=== PATIENT | male | born 1960 | race Caucasian/White ===

== ENCOUNTER 2016-12-19 08:16 | Emergency (ER) | payer OTHER ==
[~2016-12-19] VITALS: Ht 190.5 cm; Wt 113.4 kg
[~2016-12-19 08:16] MED LIST: ACHD5005 PO; CPR500T PO; HYDR1TAB8 OP; IBP800T PO; KETO-22 PO; TRM50T PO
[2016-12-19] MEDS ORDERED: methylPREDNISolone 125 MG (Solu-MEDROL) VIAL ONE (09:08)
[2016-12-19] MEDS ORDERED: diphenhydrAMINE 50 MG/ML INJ (BENADRYL) ONE (09:09)
--- NOTE | 2016-12-19 09:18 | ED Integumentary General ---
General Stated Complaint: ITCHY/SWELLING BOTH ARMS AND FACE Source: patient, family () Exam Limitations: no limitations History of Present Illness Time seen by provider: 09:07 Initial Comments Patient presents to ER with a bright red rash and itching over his forearms and trunk head and neck sparing the mucosa. He has no difficulty swallowing his secretions or difficulty breathing, cough, history of asthma or COPD. He does smoke about a pack a day denies drinking or illicit drug use. No new exposures, trips to the [place], insect bites, tick bites. His remarks that on or Tuesday she switched over from Tide detergent to tide pods for high efficiency machines. He has taken Benadryl a few times for the itching and it marginally helped. No creams or emollients. No history of this ever happening before. No one else around him has similar situation. No travel outside the [facility] recently. No recent infections. He is on minocycline for years to treat a chronic bullous disease by dermatology and Debra. His PCP is Dr. OWEN. Allergies and Home Medications Allergies Coded Allergies: Naproxen (Unverified Allergy, Mild, 01/18/10) No Known Drug Allergies (Unverified , 12/20/09) Home Medications Hydrocodone Bit/Acetaminophen 1 Each Tablet, 1-2 EACH PO Q6H PRN, #14 Ref 0 Prescribed by: TESSY RAY on 12/29/11 1639 Hydroxyzine HCl 25 Mg Tablet, 25 MG PO Q6H PRN for ITCHING, #30 Ref 1 Prescribed by: YAMILETH FELTON on 12/19/16 1004 Ibuprofen 800 Mg Tab, 800 MG PO Q8HR PRN, #30 Ref 0 Prescribed by: TESSY RAY on 12/29/11 1639 Prednisone 20 Mg Tab, 40 MG PO BID for 5 Days, #20 Ref 0 Prescribed by: YAMILETH FELTON on 12/19/16 1004 Constitutional: No chills, No diaphoresis, No fever EENTM: No blurred vision, No double vision, No ear pain, No eye pain, No hoarseness, No mouth pain, No mouth swelling, No nose congestion, No nose pain, No throat pain, No throat swelling, No vision loss Respiratory: No cough, No short of breath, No stridor, No wheezing Cardiovascular: No chest pain, No syncope, No vascular heart diseas Gastrointestinal: No abdominal pain, No constipation, No diarrhea Genitourinary: No dysuria, No incontinence Musculoskeletal: No back pain, No joint pain Skin: see HPI, No change in hair/nails, pruritus, rash Psychiatric/Neurological: Denies Anxiety, Denies Depressed Past Utqmcxg-[id number]-[id number] Hx Patient Social History Alcohol Use: Occasionally Uses Recreational Drug Use: No Type Used: Cigarettes (1 ppd) Recent Foreign Travel: No Contact w/Someone Who Travel: No Physical Exam Vital Signs Vital Sign - Last 12Hours 12/19/16 09:00 Temp 98.2 Pulse 69 Resp 18 B/P (MAP) 142/77 Pulse Ox 95 Capillary Refill : General Appearance: WD/WN, no apparent distress HEENT: PERRL/EOMI, normal ENT inspection, TMs normal, pharynx normal Neck: non-tender, full range of motion, supple, normal inspection Cardiovascular: normal peripheral pulses, regular rate, rhythm, no edema, no JVD, no murmur Respiratory: chest non-tender, lungs clear, normal breath sounds, no respiratory distress, no accessory muscle use Gastrointestinal: normal bowel sounds, non tender, soft Extremities: normal range of motion, non-tender, normal capillary refill Neurologic/Psychiatric: soubrette II-XII nml as tested, no motor/sensory deficits, alert, normal mood/affect, oriented x 3 Skin: rash (blanchable, over arms trunk and head and neck. Sparing mucous membranes. No bullae seen) Skin Problem Location: face, scalp, neck, upper extremities, torso Skin Problem Character: blanching, erythema, papules (few on forearms), patchy , warm Lymphatic: no adenopathy Progress/Results/Core Measures Results/Orders Lab Results Laboratory Tests Test 12/19/16 09:05 Range/Units White Blood Count 7.1 4.3-11.0 10^3/uL Red Blood Count 5.39 4.35-5.85 10^6/uL Hemoglobin 16.8 13.3-17.7 G/DL Hematocrit 49 40-54 % Mean Corpuscular Volume 90 80-99 FL Mean Corpuscular Hemoglobin 31 25-34 PG Mean Corpuscular Hemoglobin Concent 35 32-36 G/DL Red Cell Distribution Width 14.1 10.0-14.5 % Platelet Count 244 130-400 10^3/uL Mean Platelet Volume 9.0 7.4-10.4 FL Neutrophils (%) (Auto) 76 H 42-75 % Lymphocytes (%) (Auto) 12 12-44 % Monocytes (%) (Auto) 8 0-12 % Eosinophils (%) (Auto) 4 0-10 % Basophils (%) (Auto) 0 0-10 % Neutrophils # (Auto) 5.4 1.8-7.8 X 10^3 Lymphocytes # (Auto) 0.8 L 1.0-4.0 X 10^3 Monocytes # (Auto) 0.5 0.0-1.0 X 10^3 Eosinophils # (Auto) 0.3 0.0-0.3 10^3/uL Basophils # (Auto) 0.0 0.0-0.1 10^3/uL Sodium Level 139 135-145 MMOL/L Potassium Level 4.4 3.6-5.0 MMOL/L Chloride Level 110 H 98-107 MMOL/L Carbon Dioxide Level 21 21-32 MMOL/L Anion Gap 8 5-14 MMOL/L Blood Urea Nitrogen 19 H 7-18 MG/DL Creatinine 0.94 0.60-1.30 MG/DL Estimat Glomerular Filtration Rate > 60 BUN/Creatinine Ratio 20 Glucose Level 124 H 70-105 MG/DL Calcium Level 8.1 L 8.5-10.1 MG/DL Total Bilirubin 0.5 0.1-1.0 MG/DL Aspartate Amino Transf (AST/SGOT) 16 5-34 U/L Alanine Aminotransferase (ALT/SGPT) 24 0-55 U/L Alkaline Phosphatase 88 40-136 U/L Total Protein 6.7 6.4-8.2 G/DL Albumin 3.6 3.2-4.5 G/DL My Orders Orders - YAMILETH FELTON Methylprednisolone Sod Succ (Solu-Medrol (12/19/16 09:08) Diphenhydramine Injection (Benadryl Inje (12/19/16 09:09) Saline Lock/Iv-Start (12/19/16 09:18) Cbc With Automated Diff (12/19/16 09:18) Comprehensive Metabolic Panel (12/19/16 09:18) Methylprednisolone Sod Succ (Solu-Medrol (12/19/16 09:30) Diphenhydramine Tablet (Benadryl Tablet) (12/19/16 09:30) Famotidine Injection (Pepcid Injection) (12/19/16 10:00) Famotidine Injection (Pepcid Injection) (12/19/16 09:54) Medications Given in ED Current Medications Medications Dose Ordered Sig/Evelyn Route Start Time Stop Time Status Last Admin Dose Admin Diphenhydramine HCl 50 mg STK-MED ONCE .ROUTE 12/19/16 09:09 12/19/16 09:12 DC 12/19/16 09:15 50 MG Famotidine 20 mg ONCE ONCE IVP 12/19/16 10:00 12/19/16 10:01 DC 12/19/16 09:58 20 MG Methylprednisolone Sodium Succinate 125 mg STK-MED ONCE .ROUTE 12/19/16 09:08 12/19/16 09:12 DC 12/19/16 09:14 125 MG Vital Signs/I&O Vital Sign - Last 12Hours 12/19/16 12/19/16 09:00 10:10 Temp 98.2 98.2 Pulse 69 61 Resp 18 18 B/P (MAP) 142/77 Pulse Ox 95 98 Progress Note : Progress Note Urticarial appearing rash treated with steroids, Benadryl and H2 antagonist. We' ll send him out on similar therapy for the next few days and have him follow-up the next 1 or 2 days with his primary care physician. There is no signs of airway impairment. After a short period of observation the patient was getting better. He has his at home to monitor him. He is also been encouraged to avoid sun exposure given the fact he is on minocycline. Departure Impression Impression: Primary Impression: Hypersensitivity reaction Qualified Codes: T78.40XA - Allergy, unspecified, initial encounter Disposition: 01 HOME, SELF-CARE Condition: Stable Departure-Patient Inst. Decision time for Depature: 09:52 Referrals: BUBBA OWEN DO (PCP/Family) Primary Care Physician Patient Instructions: Anaphylaxis (DC) Add. Discharge Instructions: You're having a hypersensitivity reaction probably due to a change in laundry detergents or some other unknown exposure. Appropriate therapy at this time would include Benadryl or Vistaril that I will send the pharmacy for itching every 6 hours as needed. We'll keep you on a 5 day course of steroids that he should take to completion. Signs of worsening disease would include difficulty breathing, wheezing, upper airway sounds, inability to swallow his secretions, alterations of level of consciousness. If you experience that she should go to your nearest ER immediately. He should make a follow-up appointment with her primary care physician in the next 1-2 days. While you're on the minocycline you should wear wide brim hats and sunscreen and avoid direct sun contact were possible as this may also cause a rash. Scripts Prednisone (Prednisone) 20 Mg Tab 40 MG PO BID for 5 Days, #20 TAB 0 Refills Prov: YAMILETH FELTON 12/19/16 Hydroxyzine HCl (Hydroxyzine HCl) 25 Mg Tablet 25 MG PO Q6H Y for ITCHING, #30 TAB 1 Refill Prov: YAMILETH FELTON 12/19/16 Copy Copies To 1: BUBBA OWEN TITUS J Dec 19, 2016 09:18
[2016-12-19 09:25] LABS: BASOPHILS % (AUTO) 0 % (0-10); EOSINOPHILS # (AUTO) 0.3 10^3/uL (0.0-0.3); EOSINOPHILS % (AUTO) 4 % (0-10); LYMPHOCYTES # (AUTO) 0.8 X 10^3 (1.0-4.0); LYMPHOCYTES % (AUTO) 12 % (12-44); MEAN CORPUSCULAR HEMOGLOBIN 31 PG (25-34); MEAN CORPUSCULAR HGB CONC 35 G/DL (32-36); MEAN CORPUSCULAR VOLUME 90 FL (80-99); MONOCYTES # (AUTO) 0.5 X 10^3 (0.0-1.0); MONOCYTES % (AUTO) 8 % (0-12); NEUTROPHILS # (AUTO) 5.4 X 10^3 (1.8-7.8); NEUTROPHILS % (AUTO) 76 % (42-75); PLATELET COUNT 244 10^3/uL (130-400); RED BLOOD COUNT 5.39 10^6/uL (4.35-5.85); RED CELL DISTRIBUTION WIDTH 14.1 % (10.0-14.5); WHITE BLOOD COUNT 7.1 10^3/uL (4.3-11.0)
[2016-12-19] MEDS ORDERED: methylPREDNISolone 125 MG (Solu-MEDROL) VIAL IVP ONE (09:30)
[2016-12-19] MEDS ORDERED: diphenhydrAMINE 25 MG TAB (BENADRYL) PO ONE (09:30)
[2016-12-19 09:39] LABS: ALANINE AMINOTRANSFERASE 24 U/L (0-55); ALBUMIN 3.6 G/DL (3.2-4.5); ANION GAP 8 MMOL/L (5-14); ASPARTATE AMINO TRANSFERASE 16 U/L (5-34); BILIRUBIN,TOTAL 0.5 MG/DL (0.1-1.0); BLOOD UREA NITROGEN 19 MG/DL (7-18); BUN/CREATININE RATIO 20; CALCIUM 8.1 MG/DL (8.5-10.1); CARBON DIOXIDE 21 MMOL/L (21-32); CHLORIDE 110 MMOL/L (98-107); CREATININE SERUM 0.94 MG/DL (0.60-1.30); GFR ESTIMATED > 60; GLUCOSE 124 MG/DL (70-105); POTASSIUM 4.4 MMOL/L (3.6-5.0); SODIUM 139 MMOL/L (135-145); TOTAL PROTEIN 6.7 G/DL (6.4-8.2)
[2016-12-19] MEDS ORDERED: FAMOTIDINE 20MG/2ML IV (PEPCID) ONE (09:54)
[2016-12-19] MEDS ORDERED: FAMOTIDINE 20MG/2ML IV (PEPCID) IVP ONE (10:00)
[2016-12-19] MEDS ORDERED: PRD20T PO (10:04)
[2016-12-19] MEDS ORDERED: HYDR-700 PO (10:04)
[2016-12-19 10:10] VITALS: BP 145/81
== END 2016-12-19 10:12 | disposition home or self-care (01) ==
LOC: EDUNIT# 08:16 → ER 08:17
DX: T78.40XA Allergy, unspecified, initial encounter (principal); J44.9 Chronic obstructive pulmonary disease, unspecified; F17.210 Nicotine dependence, cigarettes, uncomplicated
CPT/HCPCS: 36415; 80053; 85025; 96374; 96375